=== PATIENT | female | born 1995 | race Caucasian/White ===

== ENCOUNTER 2018-07-28 00:15 | Emergency (ER) | payer BC, MEDICAID ==
--- NOTE | 2018-07-28 00:23 | Emergency Department Record ---
History of Present Illness - General Chief complaint: Cold Stated complaint: HEAD COLD Time Seen by Provider: 07/28/18 00:16 Source: Patient, Family Mode of Arrival: Ambulatory Limitations: No limitations - History of Present Illness Initial comments: 22 yo female presents with two weeks of congestion, sinus pressure, discolored drainage. No fevers. No chills. She has occasional mild cough. No history of sinus surgery. No significant sore throat or ear pain. She has some mild dysuria as well. That has only been about 2 days. MD complaint: Other -: Week(s) (2) Severity: Moderate Quality: Aching Consistency: Constant Improves with: Other Worsens with: None Context-Epistaxis: Other Context- Ear: Other Associated Symptoms: Rhinorrhea - Related Data Previous Rx's Medication Instructions Recorded Amoxicillin 500Mg Capsule [Amoxil] 500 mg PO TID #30 tab 07/28/18 Fluticasone Propionate [Flonase] 2 spray EACH NARES DAILY #1 bottle 07/28/18 Ondansetron [Zofran Odt] 4 mg PO Q8H #20 tab.rapdis 07/28/18 Allergies Allergy/AdvReac Type Severity Reaction Status Date / Time azithromycin AdvReac NAUSEA Verified 07/28/18 00:28 Review of Systems Constitutional: Denies: Chills, Fever, Malaise, Weakness Eyes: Denies: Eye discharge, Eye pain, Photophobia, Vision change ENT: Reports: Congestion. Denies: Ear pain, Throat pain Respiratory: Reports: Cough. Denies: Hemoptysis, Stridor, Wheezes Cardiovascular: Denies: Chest pain, Palpitations, Syncope Endocrine: Denies: Fatigue Gastrointestinal: Reports: Nausea. Denies: Abdominal pain, Diarrhea, Vomiting Genitourinary: Reports: As per HPI, Dysuria Musculoskeletal: Denies: Arthralgia, Back pain, Myalgia, Neck pain Skin: Denies: Bruising, Change in color, Rash Neurological: Reports: Headache, Vertigo Psychiatric: Denies: Anxiety Hematological/Lymphatic: Denies: Blood Clots, Easy bleeding, Easy bruising, Swollen glands Physical Exam - General General Appearance: Alert, Oriented x3, Cooperative, No acute distress Limitations: No limitations - Head Head exam: Atraumatic, Normal inspection - Eye Eye exam: Normal appearance, PERRL. negative: Conjunctival injection, Scleral icterus - ENT ENT exam: Mucous membranes moist, Normal orophraynx. negative: Mucous membranes dry, TM's normal bilaterally (TM bilateral fluid, no erythema) Ear exam: Normal external inspection Nasal Exam: Discharge Mouth exam: Normal external inspection Teeth exam: Normal inspection Throat exam: Normal inspection. negative: Tonsillar erythema, Tonsillomegaly, Tonsillar exudate, R peritonsillar mass, L peritonsillar mass - Neck Neck exam: Normal inspection, Lymphadenopathy (few small anterior cervical LN) - Respiratory Respiratory exam: Normal lung sounds bilaterally. negative: Respiratory distress - Cardiovascular Cardiovascular Exam: Regular rate, Normal rhythm, Normal heart sounds - Back Back exam: Denies: CVA tenderness (R), CVA tenderness (L) - Neurological Neurological exam: Alert, Oriented X3 - Psychiatric Psychiatric exam: Normal affect, Normal mood. negative: Agitated, Anxious - Skin Skin exam: Dry, Intact, Normal color, Warm Course Vital Signs 07/28/18 00:21 Temperature 97.5 F L Pulse Rate [ 86 Pulse Ox Probe] Respiratory 20 Rate Blood Pressure 122/106 [Right Arm] Pulse Ox 100 - Reevaluation(s) Reevaluation #1: 07/28/18 00:40 UA and UCG are negative Disposition Disposition: Discharge Clinical Impression: Sinusitis Disposition: Home, Self-Care Condition: (1) Good Instructions: Sinusitis (ED) Additional Instructions: Call your doctor for the next available follow up appointment Return to the ER for a recheck if worse, any new concerns or questions Take the prescriptions provided as directed Review this ER visit and the tests performed with your family doctor Prescriptions: Amoxicillin 500Mg Capsule [Amoxil] 500 mg PO TID #30 tab Fluticasone Propionate [Flonase] 2 spray EACH NARES DAILY #1 bottle Ondansetron [Zofran Odt] 4 mg PO Q8H #20 tab.rapdis Forms: Patient Portal Access Time of Disposition: 00:34 Quality - Quality Measures Quality Measures: N/A - Blood Pressure Screening Does Patient Have Any of the Following: No Blood Pressure Classification: Hypertensive Reading Systolic Measurement: 122 Diastolic Measurement: 106 Screening for High Blood Pressure: < Pre-Hypertensive BP, F/U Documented > [ G8950] Pre-Hypertensive Follow-up Interventions: Referral to alternative/primary care provider.
[2018-07-28] MEDS ORDERED: AMOXICILLIN 500MG CAPSULE PO ONE (00:34)
[2018-07-28] MEDS ORDERED: ONDANSETRON 4 MG ODT TABLET SL ONE (00:34)
[2018-07-28 00:35] LABS: URINE APPEARANCE CLEAR; URINE BILIRUBIN NEGATIVE (NEGATIVE); URINE BLOOD NEGATIVE (NEGATIVE); URINE COLOR YELLOW; URINE GLUCOSE (UA) NEGATIVE (NEGATIVE); URINE KETONE NEGATIVE (NEGATIVE); URINE LEUKOCYTE ESTERASE NEGATIVE (NEGATIVE); URINE NITRITE NEGATIVE (NEGATIVE); URINE PROTEIN NEGATIVE (NEGATIVE); URINE UROBILINOGEN 0.2 E.U./dL (0.20 - 1.00)
[2018-07-28 00:36] LABS: HCG,QUALITATIVE URINE NEGATIVE (NEGATIVE)
== END 2018-07-28 00:48 | disposition home or self-care (01) ==
LOC: ER 00:15
DX: J01.90 Acute sinusitis, unspecified (principal); R05 Cough; R30.0 Dysuria; R42 Dizziness and giddiness
CPT/HCPCS: 81003; 81025; 99282; 99283

== ENCOUNTER 2018-07-30 21:04 | Emergency (ER) | payer BC, MEDICAID ==
--- NOTE | 2018-07-30 21:20 | Emergency Department Record ---
History of Present Illness - General Chief complaint: Flu Like Symptoms Stated complaint: FLU LIKE SYMPTOMS Time Seen by Provider: 07/30/18 21:08 Source: Patient, Old records reviewed Limitations: No limitations - History of Present Illness Initial comments: 22 yo female returns to ED for evaluation following diagnosis of a head cold 2 days ago. Patient complains of congestion, sinus pressure symptoms and was started on Amoxicillin and Flonase, reports that her symptoms have not improved. Patient did not fill her prescription until today, took her first does of Tylenol 1 hour ago. Patient reports all-over body aches and just not feeling well in general. Patient denies fevers, chills, or sore throat symptoms. Patient is also concerned about a "swollen gland near the right ear" . MD Complaint: Generalized weakness Onset/Timin -: Days(s) Location: Generalized Severity: Moderate Quality: Aching Consistency: Constant Improves with: None Worsens with: None Associated Symptoms: Denies other symptoms - Ana Coma Scale Eye Response: (4) Open spontaneously Motor Response: (6) Obeys commands Verbal Response: (5) Oriented Ana Total: 15 - Related Data Previous Rx's Medication Instructions Recorded Amoxicillin 500Mg Capsule [Amoxil] 500 mg PO TID #30 tab 07/28/18 Fluticasone Propionate [Flonase] 2 spray EACH NARES DAILY #1 bottle 07/28/18 Ondansetron [Zofran Odt] 4 mg PO Q8H #20 tab.rapdis 07/28/18 Allergies Allergy/AdvReac Type Severity Reaction Status Date / Time erythromycin base AdvReac NAUSEA Verified 07/30/18 21:08 Review of Systems Constitutional: Reports: Malaise, Weakness. Denies: Chills, Fever, Night sweats Eyes: Denies: Eye discharge, Eye pain ENT: Reports: Congestion, Ear pain. Denies: Epistaxis Respiratory: Denies: Cough, Dyspnea Cardiovascular: Denies: Chest pain, Dyspnea on exertion Endocrine: Reports: Fatigue. Denies: Heat or cold intolerance Gastrointestinal: Reports: Abdominal pain. Denies: Constipation, Nausea, Vomiting Genitourinary: Denies: Incontinence, Retention Musculoskeletal: Reports: Myalgia. Denies: Arthralgia, Back pain Skin: Denies: Bruising, Change in color Neurological: Denies: Abnormal gait, Confusion, Headache, Seizure Psychiatric: Reports: Anxiety Hematological/Lymphatic: Denies: Anemia, Blood Clots Past Medical History - SOCIAL HISTORY Smoking Status: Never smoker Drug Use: None - RESPIRATORY Hx Respiratory Disorders: Yes Hx Asthma: Yes - CARDIOVASCULAR Hx Cardio Disorders: No - NEURO Hx Neuro Disorders: No - GI Hx GI Disorders: No - Hx Genitourinary Disorders: Yes Hx Renal Disease: Yes - ENDOCRINE Hx Endocrine Disorders: No - PSYCH Hx Psych Problems: No Family Medical History Hx Cancer: Grandparents Physical Exam - General General Appearance: Alert, Oriented x3, Cooperative, Mild distress Limitations: No limitations - Head Head exam: Atraumatic, Normocephalic, Normal inspection Head exam detail: negative: Abrasion, Contusion, Negron's sign, General tenderness, Hematoma, Laceration - Eye Eye exam: Normal appearance, Conjunctival injection. negative: Periorbital swelling, Periorbital tenderness, Scleral icterus - ENT Ear exam: Other (No lymphadenopathy or gland enlargement is noted on examination ). negative: Auricular hematoma, Auricular trauma Nasal Exam: negative: Active bleeding, Discharge, Dried blood, Foreign body Mouth exam: negative: Drooling, Laceration, Muffled voice, Tongue elevation - Neck Neck exam: Normal inspection. negative: Meningismus, Tenderness - Respiratory Respiratory exam: Normal lung sounds bilaterally. negative: Rales, Respiratory distress, Rhonchi, Stridor - Cardiovascular Cardiovascular Exam: Regular rate, Normal rhythm, Normal heart sounds - GI/Abdominal GI/Abdominal exam: Soft. negative: Rebound, Rigid, Tenderness - Rectal Rectal exam: Deferred - exam: Deferred - Extremities Extremities exam: Normal inspection. negative: Pedal edema, Tenderness - Back Back exam: Denies: CVA tenderness (R), CVA tenderness (L) - Neurological Neurological exam: Alert, Normal gait, Oriented X3 - Psychiatric Psychiatric exam: Anxious - Skin Skin exam: Normal color. negative: Abrasion Type of lesion: negative: abrasion Course Vital Signs 07/30/18 21:12 Temperature 98.1 F Pulse Rate [ 98 H Pulse Ox Probe] Respiratory 20 Rate Blood Pressure 139/78 [Left Arm] Pulse Ox 100 - Reevaluation(s) Reevaluation #1: 07/30/18 21:41 Laboratory studies were reviewed (UA/Influenza), both are negative for an acute process. Will obtain laboratory studies, administer Toradol and IVFs, and reassess. Reevaluation #2: 07/30/18 22:41 Laboratory studies were reviewed and are grossly unremarkable for an acute process. Patient was reassessed and is sleeping at this time. Patient easily awakens and was updated on all results, repeat abdominal examination is benign. Symptoms appears with myalgias likely resulting from a viral syndrome. Patient appears stable for discharge at this time. Reevaluation #3: 07/30/18 23:02 Patient was reassessed and is currently sleeping. Medical Decision Making - Lab Data Result diagrams: 07/30/18 22:00 07/30/18 22:00 Disposition Disposition: Discharge Clinical Impression: Myalgia URI (upper respiratory infection) Qualifiers: URI type: unspecified URI Qualified Code(s): J06.9 - Acute upper respiratory infection, unspecified Disposition: Home, Self-Care Condition: (2) Stable Instructions: Viral Syndrome (ED) Additional Instructions: Return to ED if your symptoms worsen or if you have any concerns. Tylenol/Ibuprofen as directed. Follow-up with your family doctor in 3-5 days as directed. Forms: Patient Portal Access Time of Disposition: 23:04 Quality - Quality Measures Quality Measures: N/A - Blood Pressure Screening Does Patient Have Any of the Following: No Blood Pressure Classification: Pre-Hypertensive BP Reading Systolic Measurement: 139 Diastolic Measurement: 78 Screening for High Blood Pressure: < Pre-Hypertensive BP, F/U Documented > [ G8950] Pre-Hypertensive Follow-up Interventions: Referral to alternative/primary care provider.
[2018-07-30 21:31] LABS: URINE APPEARANCE SL CLOUDY; URINE BILIRUBIN NEGATIVE (NEGATIVE); URINE BLOOD NEGATIVE (NEGATIVE); URINE COLOR YELLOW; URINE GLUCOSE (UA) NEGATIVE (NEGATIVE); URINE KETONE NEGATIVE (NEGATIVE); URINE LEUKOCYTE ESTERASE NEGATIVE (NEGATIVE); URINE NITRITE NEGATIVE (NEGATIVE); URINE PROTEIN NEGATIVE (NEGATIVE); URINE UROBILINOGEN 0.2 E.U./dL (0.20 - 1.00)
[2018-07-30 21:36] LABS: INFLUENZA A NEGATIVE (NEGATIVE); INFLUENZA B NEGATIVE (NEGATIVE)
[2018-07-30] MEDS ORDERED: KETOROLAC 30 MG/ML VIAL IVP ONE (21:41)
[2018-07-30] MEDS ORDERED: 0.9 % SODIUM CHLORIDE 1000ML 1,000 ML IV SCH (21:45)
[2018-07-30 22:21] LABS: BASO % 0.4 % (0-6); EOS % 1.8 % (0-6); GRAN % 64.8 % (47-80); HEMATOCRIT 37.6 % (35.0-47.0); LYMPH % 27.3 % (16-45); MEAN CELL VOLUME 77.5 fl (81-97); MEAN CORPUSCULAR HEMOGLOBIN 24.7 pg (27-33); MEAN CORPUSCULAR HGB CONC 31.9 g/dl (32-36); MEAN PLATELET VOLUME 9.2 fl (7.4-10.4); MONO % 5.7 % (0-9); PLATELET COUNT 320 K/uL (130-400); RED BLOOD COUNT 4.85 M/uL (3.80-5.40); RED CELL DISTRIBUTION WIDTH 15.4 % (11.5-14.5); WHITE BLOOD COUNT W/O DIFF 10.7 K/uL (4.2-12.2)
[2018-07-30 22:32] LABS: BLOOD UREA NITROGEN 10 mg/dL (6-20); CREATININE 0.6 mg/dL (0.5-0.9); EST GLOMERULAR FILTRATION RATE > 60 mL/min; TOTAL PROTEIN 7.8 g/dL (6.6-8.7)
[2018-07-30 22:33] LABS: LIPASE 23 U/L (13-60)
[2018-07-30 22:34] LABS: GLUCOSE,RANDOM 105 mg/dL (74-109)
[2018-07-30 22:37] LABS: ALB/GLOB RATIO 1.3 (1.1-1.8); ALBUMIN 4.4 g/dL (4.0-5.0); ALKALINE PHOSPHATASE 86 U/L (35-104); ALT/SGPT 12 U/L (<33); AST/SGOT 12 U/L (10.0-35.0)
== END 2018-07-30 23:26 | disposition home or self-care (01) ==
LOC: ER 21:04
DX: J06.9 Acute upper respiratory infection, unspecified (principal); R53.1 Weakness; M79.18 Myalgia, other site
CPT/HCPCS: 99284 ×2; 96374; 83690; 85025; 80053; 81003; 87400; J1885; J7030

== ENCOUNTER 2018-09-09 12:29 | Emergency (ER) | payer BC ==
[2018-09-09 14:17] LABS: INFLUENZA A POSITIVE (NEGATIVE); INFLUENZA B NEGATIVE (NEGATIVE); STREP A SCREEN NEGATIVE (NEGATIVE)
--- NOTE | 2018-09-09 14:39 | Emergency Department Record ---
History of Present Illness - General Chief Complaint: Cough Stated Complaint: COUGH,CONGESTION Time Seen by Provider: 09/09/18 13:33 Source: Patient Mode of Arrival: Ambulatory Limitations: No limitations - History of Present Illness Initial Comments: pt has had fever, cough, rhinitis, sore throat for 4 days. she is 1 month MD Complaint: Cough, Fever, Nasal congestion, Rhinorrhea, Sore throat Onset/Timin -: Days(s) Consistency: Constant Context: Sick contacts Associated Symptoms: Cough, Fever, Nasal congestion, Sore throat - Related Data Previous Rx's Medication Instructions Recorded Ondansetron [Zofran Odt] 4 mg PO Q8H #20 tab.rapdis 07/28/18 Allergies Allergy/AdvReac Type Severity Reaction Status Date / Time erythromycin base AdvReac NAUSEA Verified 07/30/18 21:08 Travel Screening - Travel/Exposure Within Last 30 Days Have you traveled within the last 30 days?: No - Travel/Exposure Within Last Year Have you traveled outside the [place] in the last year?: No - Additonal Travel Details Have you been exposed to anyone with a communicable illness?: No - Travel Symptoms Symptom Screening: None Review of Systems Reviewed: No additional complaints except as noted below Constitutional: Reports: As per HPI, Fever. Denies: Chills, Malaise, Night s weats, Weakness, Weight change Eyes: Reports: As per HPI. Denies: Eye discharge, Eye pain, Photophobia, Vision change ENT: Reports: As per HPI, Congestion, Throat pain. Denies: Dental pain, Ear pain, Epistaxis, Hearing loss Respiratory: Reports: As per HPI, Cough. Denies: Dyspnea, Hemoptysis, Stridor, Wheezes Cardiovascular: Reports: As per HPI. Denies: Arrhythmia, Chest pain, Dyspnea on exertion, Edema, Murmurs, Orthopnea, Palpitations, Paroxysmal nocturnal dyspnea, Rheumatic Fever, Syncope Endocrine: Reports: As per HPI. Denies: Fatigue, Heat or cold intolerance, Polydipsia, Polyuria Gastrointestinal: Reports: As per HPI. Denies: Abdominal pain, Constipation, Diarrhea, Hematemesis, Hematochezia, Melena, Nausea, Vomiting Genitourinary: Reports: As per HPI. Denies: Abnormal menses, Discharge, Dyspareunia, Dysuria, Frequency, Hematuria, Incontinence, Retention, Urgency Musculoskeletal: Reports: As per HPI. Denies: Arthralgia, Back pain, Gout, Joint swelling, Myalgia, Neck pain Skin: Reports: As per HPI. Denies: Bruising, Change in color, Change in hair/nails, Lesions, Pruritus, Rash Neurological: Reports: As per HPI. Denies: Abnormal gait, Confusion, Headache, Numbness, Paresthesias, Seizure, Tingling, Tremors, Vertigo, Weakness Psychiatric: Reports: As per HPI. Denies: Anxiety, Auditory hallucinations, Depression, Homicidal thoughts, Suicidal thoughts, Visual hallucinations Hematological/Lymphatic: Reports: As per HPI. Denies: Anemia, Blood Clots, Easy bleeding, Easy bruising, Swollen glands Past Medical History - SOCIAL HISTORY Smoking Status: Never smoker Alcohol Use: None Drug Use: None - RESPIRATORY Hx Respiratory Disorders: Yes Hx Asthma: Yes - CARDIOVASCULAR Hx Cardio Disorders: No - NEURO Hx Neuro Disorders: No - GI Hx GI Disorders: No - Hx Genitourinary Disorders: Yes Hx Renal Disease: Yes - ENDOCRINE Hx Endocrine Disorders: No - MUSCULOSKELETAL Hx Musculoskeletal Disorders: No - PSYCH Hx Psych Problems: No - HEMATOLOGY/ONCOLOGY Hx Hematology/Oncology Disorders: No Family Medical History Any Significant Family History?: No Hx Cancer: Grandparents Physical Exam - General General Appearance: Alert, Oriented x3, Cooperative, Mild distress - Head Head exam: Normal inspection - Eye Eye exam: Normal appearance, PERRL, Conjunctival injection, EOMI Pupils: Normal accommodation - ENT ENT exam: Normal exam, Mucous membranes moist, Normal external ear exam, Normal orophraynx, TM's normal bilaterally Ear exam: Normal external inspection. negative: External canal tenderness Nasal Exam: Normal inspection. negative: Discharge, Sinus tenderness Mouth exam: Normal external inspection, Tongue normal Teeth exam: Normal inspection. negative: Dental caries Throat exam: Normal inspection. negative: Tonsillar erythema, Tonsillar exudate - Neck Neck exam: Normal inspection, Full ROM. negative: Tenderness - Respiratory Respiratory exam: Normal lung sounds bilaterally. negative: Respiratory distress - Cardiovascular Cardiovascular Exam: Normal rhythm, Normal heart sounds, Tachycardia - GI/Abdominal GI/Abdominal exam: Soft, Normal bowel sounds. negative: Tenderness - Rectal Rectal exam: Deferred - exam: Deferred - Extremities Extremities exam: Normal inspection, Full ROM, Normal capillary refill. negative: Tenderness - Back Back exam: Reports: Normal inspection, Full ROM. Denies: Muscle spasm, Rash noted, Tenderness - Neurological Neurological exam: Alert, CN II-XII intact, Normal gait, Oriented X3 - Psychiatric Psychiatric exam: Normal affect, Normal mood - Skin Skin exam: Dry, Intact, Normal color, Warm Course Vital Signs 09/09/18 12:34 Temperature 98.9 F Pulse Rate 124 H Respiratory 18 Rate Blood Pressure 141/84 Pulse Ox 98 Medical Decision Making - Lab Data Lab Results 09/09/18 Range/Units 13:50 Influenza Type A Ag Positive H (NEGATIVE) Influenza Type B Ag Negative (NEGATIVE) Group A Strep Screen Negative (NEGATIVE) Disposition Disposition: Discharge Clinical Impression: Influenza A Disposition: Home, Self-Care Condition: (1) Good Instructions: Influenza (ED) Additional Instructions: follow up with family doctor. return sooner if worse. push fluids. tylenol as needed Quality - Quality Measures Quality Measures: N/A - Blood Pressure Screening Does Patient Have Any of the Following: No Blood Pressure Classification: Pre-Hypertensive BP Reading Systolic Measurement: 141 Diastolic Measurement: 84 Screening for High Blood Pressure: < First Hypertensive BP, F/U Documented > [G8950] First Hypertensive Follow-up Interventions: Follow-up with rescreen GT 1 day and LT 4 weeks.
== END 2018-09-09 15:12 | disposition home or self-care (01) ==
LOC: ER 12:29
DX: J10.1 Influenza due to other identified influenza virus with other respiratory manifestations (principal)
CPT/HCPCS: 87400; 87880; 99282

== ENCOUNTER 2019-06-14 23:45 | Emergency (ER) | payer BC, MEDICAID ==
--- NOTE | 2019-06-15 00:10 | Emergency Department Record ---
History of Present Illness - General Chief complaint: Pain Stated complaint: RIBS HURT ON THE LEFT SIDE Time Seen by Provider: 06/14/19 23:48 Source: Patient Mode of Arrival: Ambulatory Limitations: No limitations - History of Present Illness Initial comments: 23 yo female presents to ED for evaluation of right sided chest/abdominal pain following fall x 2 this week. Patient reports that she was seen after her second fall at [facility], underwent CXR that was negative. Patient reports pain with deep inspiration, denies fevers, chills, or recent cough symptoms. Patient denies history of anticoagulation medications, denies health problems at her baseline. Patient has been taking Tylenol and Ibuprofen at home without much improvement. MD Complaint: Other (Chest/abdominal pain) Onset/Timin -: Days(s) Quality: Aching Consistency: Constant Improves with: Immobilization Worsens with: Other (Inspiration) Associated Symptoms: Denies other symptoms - Related Data Home Medications Medication Instructions Recorded Confirmed Last Taken Ibuprofen 600 mg PO ASDIR 06/15/19 06/15/19 Unknown Norethindrone [Sharobel] 0.35 mg PO DAILY 06/15/19 06/15/19 Unknown Previous Rx's Medication Instructions Recorded Ibuprofen [Motrin 600Mg] 600 mg PO Q6H PRN #30 tablet 06/15/19 Allergies Allergy/AdvReac Type Severity Reaction Status Date / Time erythromycin base AdvReac NAUSEA Verified 06/15/19 00:06 Review of Systems Constitutional: Denies: Chills, Fever, Malaise, Night sweats Eyes: Denies: Eye discharge, Eye pain ENT: Denies: Congestion, Ear pain, Epistaxis Respiratory: Denies: Cough, Dyspnea Cardiovascular: Reports: Chest pain. Denies: Dyspnea on exertion Endocrine: Denies: Fatigue, Heat or cold intolerance Gastrointestinal: Reports: Abdominal pain. Denies: Constipation, Nausea, Vomiting Genitourinary: Denies: Incontinence, Retention Musculoskeletal: Denies: Arthralgia, Back pain Skin: Denies: Bruising, Change in color Neurological: Denies: Abnormal gait, Confusion, Headache, Seizure Psychiatric: Denies: Anxiety Hematological/Lymphatic: Denies: Anemia, Blood Clots Past Medical History - SOCIAL HISTORY Smoking Status: Never smoker Drug Use: None - RESPIRATORY Hx Respiratory Disorders: Yes Hx Asthma: Yes - CARDIOVASCULAR Hx Cardio Disorders: No - NEURO Hx Neuro Disorders: No - GI Hx GI Disorders: No - Hx Genitourinary Disorders: Yes Hx Renal Disease: Yes - ENDOCRINE Hx Endocrine Disorders: No - MUSCULOSKELETAL Hx Musculoskeletal Disorders: No - PSYCH Hx Psych Problems: No - HEMATOLOGY/ONCOLOGY Hx Hematology/Oncology Disorders: No Family Medical History Hx Cancer: Grandparents Physical Exam - General General Appearance: Alert, Oriented x3, Cooperative, Mild distress Limitations: No limitations - Head Head exam: Atraumatic, Normocephalic, Normal inspection Head exam detail: negative: Abrasion, Contusion, Negron's sign, General tenderness, Hematoma, Laceration - Eye Eye exam: Normal appearance. negative: Conjunctival injection, Periorbital swelling, Periorbital tenderness, Scleral icterus - ENT Ear exam: negative: Auricular hematoma, Auricular trauma Nasal Exam: negative: Active bleeding, Discharge, Dried blood, Foreign body Mouth exam: negative: Drooling, Laceration, Muffled voice, Tongue elevation - Neck Neck exam: Normal inspection. negative: Meningismus, Tenderness - Respiratory Respiratory exam: Normal lung sounds bilaterally, Chest wall tenderness. ne gative: Rales, Respiratory distress, Rhonchi - Cardiovascular Cardiovascular Exam: Regular rate, Normal rhythm, Normal heart sounds - GI/Abdominal GI/Abdominal exam: Soft, Tenderness (Mild TTP RUQ on examination, no rebound, no guarding symptoms are present). negative: Rebound, Rigid - Rectal Rectal exam: Deferred - exam: Deferred - Extremities Extremities exam: Normal inspection. negative: Pedal edema, Tenderness - Back Back exam: Denies: CVA tenderness (R), CVA tenderness (L) - Neurological Neurological exam: Alert, Normal gait, Oriented X3 - Psychiatric Psychiatric exam: Normal affect, Normal mood - Skin Skin exam: Normal color. negative: Abrasion Type of lesion: negative: abrasion Course Vital Signs 06/14/19 23:56 Temperature 97.7 F Pulse Rate [ 95 H Left] Respiratory 20 Rate Blood Pressure 119/80 [Right Arm] Pulse Ox 100 - Reevaluation(s) Reevaluation #1: 06/15/19 01:03 CT Chest/Abdomen: No acute traumatic injury Patient was updated on all results, given copy of her CT imaging report as well. Recommended symptomatic treatment as discussed. Patient appears stable for discharge at this time. Disposition Disposition: Discharge Clinical Impression: Chest wall contusion Qualifiers: Encounter type: initial encounter Laterality: right Qualified Code(s): S20.211A - Contusion of right front wall of thorax, initial encounter Disposition: Home, Self-Care Condition: (2) Stable Instructions: Chest Wall Pain (ED) Additional Instructions: Return to ED if your symptoms worsen or if you have any concerns. Motrin as directed. Follow-up with your family doctor in 3-5 days as directed. Prescriptions: Ibuprofen [Motrin 600Mg] 600 mg PO Q6H PRN #30 tablet PRN Reason: Pain - Mod To Severe (5-10) Forms: Patient Portal Access Time of Disposition: 01:05 Quality - Quality Measures Quality Measures: N/A - Blood Pressure Screening Does Patient Have Any of the Following: No Blood Pressure Classification: Pre-Hypertensive BP Reading Systolic Measurement: 119 Diastolic Measurement: 80 Screening for High Blood Pressure: < Pre-Hypertensive BP, F/U Documented > [G8950] Pre-Hypertensive Follow-up Interventions: Referral to alternative/primary care provider.
--- NOTE | 2019-06-15 00:59 | CT SCAN REPORT ---
EXAMINATION: CT Chest, Abdomen without Contrast EXAM DATE: 06/15/2019 12:34 AM TECHNIQUE: Spiral CT images were done from lung apices through the pelvis after injection of intraven ous contrast. Sagittal and coronal 2-D reformats were made from source images. INDICATION: right sided chest/abdominal pain. COMPARISON: None FINDINGS: CT Chest: Pulmonary arteries: Unremarkable. No filling defect of the main or lobar pulmonary arteries. Thoracic aorta: Normal caliber, no dissection. Heart: Normal size. No pericardial effusion. Meenu and mediastinum: No mass or adenopathy. Scattered left hilar and mediastinal calcified lymph no nydia are present. Lungs: There is a 7 mm nodule within the left lower lobe that appears to have some faint calcificatio ns associated with it probably the result of old granulomatous disease. The lungs and central airways are clear. No evidence of pneumonia. No suspicious pulmonary nodule or mass. Pleura: No pleural effusion or pneumothorax. CT Abdomen: Liver: Normal in size and morphology.. No focal liver lesions. Bile ducts: Normal caliber bile ducts Gallbladder: Surgically absent. Pancreas: No focal lesions or peripancreatic inflammation. No dilation of the main pancreatic duct . Spleen: Normal size Adrenals: No mass or other abnormality Kidneys and Ureters: Normal kidneys without hydronephrosis GI: Normal caliber large and small bowel The appendix is not visualized. Vasculature: Unremarkable. No aneurysmal dilation of the abdominal aorta. Lymph Nodes: No lymphadenopathy. Abdominal Wall: Unremarkable. Peritoneal Cavity: No free intraperitoneal fluid or gas. Retroperitoneum: Unremarkable. SKELETAL FINDINGS: Spinal alignment is anatomic. Vertebral body heights are preserved without evidence of acute fracture . No acute sternal or rib fractures. No acute pelvic fracture or hip dislocation. No sacroiliac joint or pubic symphysis widening. No suspicious sclerotic or lytic bone lesions. IMPRESSION: 1. No evidence of significant acute abnormalities. Dictated by: Roro Link MD on 06/15/2019 12:53 AM. .
== END 2019-06-15 01:16 | disposition home or self-care (01) ==
LOC: ER 23:45
DX: S20.211A Contusion of right front wall of thorax, initial encounter (principal); R10.11 Right upper quadrant pain; V00.211A Fall from ice-skates, initial encounter
CPT/HCPCS: 71250; 74150; 99284